=== PATIENT | male | born 1970 | race Caucasian/White ===

== ENCOUNTER 2018-03-27 10:00 | Emergency (ER) | payer BC, OTHER ==
[2018-03-27 10:05] VITALS: BP 159/82; PULSE 61; RESP 18; TEMP 98.2
--- NOTE | 2018-03-27 10:25 | ED ---
Back Pain HPI - General Chief Complaint: Back Pain/Injury Stated Complaint: back pain Time Seen by Provider: 03/27/18 10:15 Source: patient Limitations: no limitations - History of Present Illness Initial Comments: 47-year-old male with no past medical history presents today for chief complaint of left-sided low back pain. Patient states that about 5 days ago he was lifting a bucket of mild when he did not use his knees and twisted causing a sharp pain in his left lower back. Patient states is all left-sided he denies any midline tenderness. Patient denies any numbness tingling or loss sensation lower extremity. She states when he lifts his left leg induces a spasm in his lower back, and twist motions of the back increase the pain. He denies any burning sensation of the LE, patient denies any loss of bowel bladder control, fever, IV drug use, history of cancer, or inability ambulate. Patient states it was beginning to feel better 2 days ago, however yesterday he was walking all day and this began to increase the pain. Patient states she has had a muscle strain in the past and was prescribed baclofen and this seemed to help more so than Flexeril. Patient states he does have [place] at home which she can take for pain management. Remaining review of systems negative. patient denies any recent fever, chills, shortness of breath, chest pain, back pain, abdominal pain, nausea or vomiting, dysuria or hematuria, constipation or diarrhea, headaches or visual changes, or any other complaints. - Related Data Home Medications Medication Instructions Recorded Confirmed [place] (Unknown Dose) 1 tab PO ONCE 03/27/18 03/27/18 Previous Rx's Medication Instructions Recorded Baclofen 10 mg PO TID PRN 5 Days #15 tab 03/27/18 Ibuprofen 800 mg PO Q8H PRN 7 Days #21 tablet 03/27/18 Allergies Allergy/AdvReac Type Severity Reaction Status Date / Time Penicillins Allergy Unknown Verified 03/27/18 10:17 Childhood Review of Systems ROS Statement: Those systems with pertinent positive or pertinent negative responses have been documented in the HPI. ROS Other: All systems not noted in ROS Statement are negative. Past Medical History Past Medical History: No Reported History History of Any Multi-Drug Resistant Organisms: None Reported Past Surgical History: No Surgical Hx Reported Past Psychological History: Anxiety Smoking Status: Never smoker Past Alcohol Use History: Occasional Past Drug Use History: None Reported General Exam - General Exam Comments Initial Comments: General: The patient is awake and alert, in no distress, and does not appear acutely ill. Eye: +3 mm pupils are equal, round and reactive to light, extra-ocular movements are intact. No nystagmus. There is normal conjunctiva bilaterally. No signs of icterus. Ears, nose, mouth and throat: There are moist mucous membranes and no oral lesions. Neck: The neck is supple, there is no tenderness or JVD. Cardiovascular: There is a regular rate and rhythm. No murmur, rub or gallop is appreciated. Respiratory: Lungs are clear to auscultation, respirations are non-labored, breath sounds are equal. No wheezes, stridor, rales, or rhonchi. Musculoskeletal: Normal inspection of the lumbar spine, there is no midline tenderness palpation. There is left lumbar paravertebral tenderness and palpation tension. No thoracic or cervical tenderness. Normal ROM of the hip, knee and ankle, no foot drop. Strength 5/5 of the LE equal b/l. Sensation intact of the LE including the saddle region. DP pulses equal bilaterally 2+. No evidence of mild clonus or fasciculations. Neurological: A&O x 3. CN II-XII intact, There are no obvious motor or sensory deficits. Coordination appears grossly intact. Speech is normal. Skin: Skin is warm and dry and no rashes or lesions are noted. Psychiatric: Cooperative, appropriate mood & affect, normal judgment. Limitations: no limitations Course Vital Signs 03/27/18 10:02 Temperature 98.2 F Pulse Rate 61 Respiratory 18 Rate Blood Pressure 159/82 O2 Sat by Pulse 99 Oximetry Medical Decision Making - Medical Decision Making Well-appearing 47-year-old male. Presenting for low back strain. Patient states he has experienced this in the past and symptoms are identical. Patient states he previously experienced results and relief of symptoms with baclofen. At this time given no midline tenderness, no history of fall, no concerning physical examination findings-patient neurovascularly intact, no signs concerning for cauda equina and there is no history concerning for fracture or mass and no radicular symptoms I feel patient is stable for discharge with symptomatic treatment for low back strain. Pt is agreeable with this plan and discharge. Pt discharged in stable condition appearing well. Ambulating without difficulty. I did discuss the case with attending provider Dr. Glass who agreed with impression and plan. Disposition Clinical Impression: Lumbar strain Disposition: HOME SELF-CARE Condition: Good Instructions (If sedation given, give patient instructions): Low Back Strain ( ED), Acute Low Back Pain (ED) Additional Instructions: Please use medication as discussed, no drinking, driving, operating machinery or working while taking baclofen. Please follow-up with family doctor in the next 2 days. Please return to emergency room if the symptoms increase or worsen or for any other concerns.. Prescriptions: Baclofen 10 mg PO TID PRN 5 Days #15 tab PRN Reason: Muscle Spasm Ibuprofen 800 mg PO Q8H PRN 7 Days #21 tablet PRN Reason: Pain Is patient prescribed a controlled substance at d/c from ED?: No Referrals: Martha Mcclelland MD [Primary Care Provider] - 1-2 days Time of Disposition: 10:25
== END 2018-03-27 10:34 | disposition home or self-care (01) ==
LOC: EC 10:00
DX: S39.012A Strain of muscle, fascia and tendon of lower back, initial encounter (principal); Z79.891 Long term (current) use of opiate analgesic; Z79.899 Other long term (current) drug therapy; Z88.0 Allergy status to penicillin; X50.0XXA Overexertion from strenuous movement or load, initial encounter
CPT/HCPCS: 99283

== ENCOUNTER → 2021-08-13 | Outpatient (CLI) | payer BC ==
--- NOTE | 2021-08-13 11:08 | XR ---
EXAMINATION TYPE: XR hand complete LT DATE OF EXAM: 08/13/2021 COMPARISON: None HISTORY: Left fifth digit pain TECHNIQUE: 3 view left hand FINDINGS: On the lateral projection there is a fracture of the distal phalanx proximal portion with i ntra-articular extension. Some diastases of the fracture fragments is evident. Mild degenerative joint change is in the proximal and distal interphalangeal joint spaces is slightly more advanced of the fifth digit. Mild soft tissue swelling is present to the fifth digit. IMPRESSION: 1. Fracture of the base of the distal phalanx fifth digit with intra-articular extension and diastas es of fracture fragments.
== END | disposition home or self-care (01) ==
LOC: RADXRMAIN 10:48
PROVIDERS: ATTEND Internal Medicine
DX: S62.637A Displaced fracture of distal phalanx of left little finger, initial encounter for closed fracture (principal)